=== PATIENT | male | born 1955 | race Two or more races ===

== ENCOUNTER 2018-02-03 09:15 | Emergency (ER) | payer OTHER ==
[~2018-02-03] VITALS: Ht 177.8 cm; Wt 87.5 kg
[2018-02-03] MEDS ORDERED: CRESTOR5 MG PO (10:32)
[2018-02-03] MEDS ORDERED: MIRALAX17 GM PO (13:58)
== END 2018-02-03 14:31 | disposition home or self-care (01) ==
LOC: ER 09:15
DX: R07.89 Other chest pain (principal); R10.9 Unspecified abdominal pain